=== PATIENT | female | born 1985 | race Caucasian/White ===

== ENCOUNTER 2018-04-16 10:24 | Emergency (ER) | payer OTHER ==
[2018-04-16] MEDS: DIPHENHYDRAMINE 25 MG CAP PO (11:22)
[2018-04-16] MEDS: AZITHROMYCIN 250 MG TAB PO (11:22)
[2018-04-16] MEDS: ACETAMINOPHEN 500 MG TAB PO (11:22)
[2018-04-16] MEDS: CEFTRIAXONE 250 MG INJ IM (11:34)
[2018-04-16] MEDS: LIDOCAINE 1% (MDV) 10 ML INJ INJ ×2 (11:41→11:42)
[2018-04-16] MEDS: LIDOCAINE 1% (MDV) 20 ML INJ INJ (11:42)
[2018-04-16 11:50] LABS: ADD UMIC YES; UR ASCORBIC ACID NEGATIVE (NEGATIVE); UR BACTERIA FEW /HPF (NONE SEEN); UR BILIRUBIN (Dip) NEGATIVE (NEGATIVE); UR BLOOD (Dip) 3+ mg/dL (NEGATIVE); UR CLARITY TURBID (CLEAR); UR COLOR AMBER (YELLOW); UR GLUCOSE (Dip) NEGATIVE (NEGATIVE); UR KETONES (Dip) NEGATIVE (NEGATIVE); UR LEUKOCYTE ESTERASE (Dip) 2+ Leu/ul (NEGATIVE); UR MUCUS MODERATE /HPF (NONE SEEN); UR NITRITE (Dip) NEGATIVE (NEGATIVE); UR RBC > 182 /HPF (0-5); UR SPECIFIC GRAVITY (Dip) 1.026 (1.003-1.030); UR SQUAMOUS EPITHELIAL CELL FEW /HPF (FEW); UR TOTAL PROTEIN (Dip) 2+ mg/dl (NEGATIVE); UR UROBILINOGEN (Dip) 1+ mg/dL (NEGATIVE); UR WBC > 182 /HPF (0-5)
== END 2018-04-16 12:53 | disposition home or self-care (01) ==
LOC: FTE 10:24
DX: N39.0 Urinary tract infection, site not specified (principal); R21 Rash and other nonspecific skin eruption; F17.210 Nicotine dependence, cigarettes, uncomplicated
CPT/HCPCS: 81001; 81025; 87086; 87591; 96372; 99284-25

== ENCOUNTER 2019-03-29 03:39 | Emergency (ER) | payer OTHER ==
[2019-03-29 04:03] LABS: URINE BLOOD (Dip) POC Trace-intact (NEGATIVE); URINE GLUCOSE (Dip) POC Negative (NEGATIVE); URINE KETONES (Dip) POC Trace (NEGATIVE); URINE LEUKOCYTE EST (Dip) POC 1+ (NEGATIVE); URINE NITRITE (Dip) POC Negative (NEGATIVE); URINE TOTAL PROTEIN POC 1+ (NEGATIVE)
[2019-03-29] MEDS: ONDANSETRON (ODT) 4 MG TAB ODT (04:04)
[2019-03-29] MEDS: AZITHROMYCIN 500 MG TAB PO (04:05)
[2019-03-29] MEDS: CEFTRIAXONE 250 MG INJ IM (04:06)
== END 2019-03-29 04:38 | disposition home or self-care (01) ==
LOC: FTE 03:39
DX: A64 Unspecified sexually transmitted disease (principal); F17.210 Nicotine dependence, cigarettes, uncomplicated
CPT/HCPCS: 81003; 81025; 87591; 96372; 99284-25